=== PATIENT | female | born 1995 | race Caucasian/White ===

== ENCOUNTER 2023-06-18 18:02 | Inpatient (IN) | payer BC, SELFPAY ==
[2023-06-18 18:31] VITALS: BP 127/79; PULSE 79; RESP 16; TEMP 36.5
[2023-06-18 18:36] VITALS: BP 127/79; PULSE 79
--- NOTE | 2023-06-18 19:07 | W.PM.OBHPL1 ---
Date of service: 06/18/23 Time of Service: 19:08 Assessment and Plan Assessment and plan (1) : Status: Acute Assessment and plan: Nela is a 28yo at 40.1 with Rh+ RI GBS- HepC-. Here with early spontaneous labor. SVE in clinic this afternoon was 40/-2. Now /-2 after reporting q5min contractions with increasing intensity at home for the last 1.5 hours. Unfortunately, contraction did calm down once she arrived here, but she has made reasonable cervical change today. Admitted in labor, wishes to avoid interventions if necessary such as IV. Will consider nitrous. Anticipate routine labor care. Qualifiers: Weeks of gestation: 40 weeks Qualified Code(s): Z3A.40 - 40 weeks gestation of OB-HPI Labor/Delivery History of Present Illness Chief Complaint: Uterine Contractions. PAULA Calculator Estimated Delivery Date Method Current WG Current Estimate 06/17/23 LMP (Certain) 40w 1d History of Present Expected Delivery Route/Plan Assessment: History Reviewed & Current Narrative: Nela is a with uncomplicated . History of induction that was a fairly traumatic experience for her. Review of Systems All systems reviewed & are unremarkable except as noted in HPI and below PFSH All Active Problems (Updated 06/18/23 @ 19:19 by Dre Maravilla) (Acute) Social History Smoking risk assessment performed?: No Exam Physical Exam Vital signs: Temp Pulse Resp BP 36.5 C 79 16 127/79 06/18/23 18:31 06/18/23 18:36 06/18/23 18:31 06/18/23 18:36 Detailed Labor and Delivery Exam Dilation: 5 Effacement (%): 70 station: -2 Cervix position: mid Consistency: soft Griffiths Score: Cervical Points Exam 0 1 2 3 Dilation Closed 1-2cm 3-4 cm 5-6cm Effacement 0-30% 40-50% 60-70% 80% Consistency Firm Medium Soft Station -3 -2 -1,0 +1,+2 Position Posterior Mid Anterior GRIFFITHS Score(Cervical Ripeness Score): 9 Amniotic Membrane Status: Intact Monitor Mode: External Contraction Intensity: Mild Fetus A Heart Rate Baseline: 130 Monitor Accelerations: 15 X 15 Monitor Decelerations: None Variability: Moderate (6-25 BPM) Presentation: Vertex Categories: Category I Assessment Note: Category 1, reactive strip. HEENT Exam HEENT Exam: Normal Respiratory Exam Respiratory Exam: Normal Cardiovascular Exam Cardiovascular Exam: Normal Exam Exam: Normal Back/Spine/Pelvis Exam Back Exam: Normal Pelvis Adequate: Yes Neurological Exam Neurological Exam: Normal Psychiatric Exam Psychiatric Exam: Normal Results Results Group Beta Strep: Negative Blood Type: O+ Rubella Status: Immune Varicella Immunity: Not Tested Risk Assessment Risk for Shoulder Dystocia Increased Risk?: No Risk for Pre-Eclampsia Daily Dose ASA Indicated: No Risk for Post- Hemorrhage At Risk?: No Counseled re: Active Management: Yes Risks Reviewed Risks Reviewed Upon Admission: Yes
[2023-06-18 19:39] LABS: HCT 38.3 % (36.0-46.0); HGB 12.5 g/dL (11.2-15.7); MCHC 32.6 % (32.0-36.0); MCV 98 fL (80-95); MPV 10.3 fL (8.0-11.0); Platelet Count 242 10^3/uL (130-400); RBC 3.91 10^6/uL (3.93-5.22); RDW 13.2 % (11.7-14.6); RDW-SD 47.6 fL; WBC 12.48 10^3/uL (4.4-10.8)
[2023-06-18 21:55] VITALS: BP 124/68; PULSE 74; RESP 16; TEMP 36.8; O2SAT 98
[2023-06-18 22:14] VITALS: BP 124/68; PULSE 74; RESP 16; TEMP 36.8
[2023-06-18 23:55] VITALS: PULSE 84
[2023-06-19] VITALS (12 sets, daily range): BP systolic 105–162; BP diastolic 56–78; PULSE 63–97; RESP 12–18; TEMP 36.2–37
--- NOTE | 2023-06-19 00:48 | OBVDS_ITS ---
Date of service: 06/19/23 Time of Service: 00:48 OB Labor/ Delivery Information Baby A Delivery Delivery Method: Spontaneaous Presentation: Vertex Cephalic Position: Vertex Vertex Position: Left Occipital Anterior Breech Position: N/A Cord Description-Baby A: 3 Vessels Amniotic Fluid: Clear Delivery Outcome: Liveborn Transferred: Remains with Mother Providers Doctor: Dre Maravilla [employer] Teacher: Dre Maravilla Nurse: Neha Sung Labor/Delivery Information Number of Babies in Womb: 1 Steroids Given: None Reason Steroids Not Administered: N/A Group Beta Strep: Negative Antibiotics Administered: No Rubella Status: Immune Blood Type: O+ Varicella Immunity: Not Tested Born En Route: No Maternal Complications: None Shoulder Dystocia: No Stages of Labor Onset of Labor Date: 06/18/23 Onset of Labor Time: 14:00 Complete Dilatation Date: 06/18/23 Complete Dilatation Time: 23:57 Labor - Stage 1 Duration: 9 hours and 57 minutes ROM Baby A: 06/18/23 ROM Baby A: 23:57 Delivery Date-Baby A: 06/19/23 Infant Delivery Time-Baby A: 12:03 Labor Stage 2 Duration: 12 hours and 6 minutes Placenta Delivery Date-Baby A: 06/19/23 Placenta Delivery Time-Baby A: 12:09 Labor-Stage 3 Duration: 6 minutes Total Length of Labor-Baby A: 22 hours and 3 minutes Placenta Cultured: No Placenta Status: Delivered Baby A Infant Gender: Female Gestational Status: Term (39-41.6 wks) Score-1 Minute Interval(Baby A) Heart Rate-1 minute: 100 BPM or Greater Respiratory Effort- 1 minute: Slow Respiration/Weak Cry Muscle Tone-1 minute: Active Movement Reflex Response-1 minute: Prompt Response Color-1 minute: Bluish Hands or Feet Score-5 Minute Interval(Baby A) Heart Rate- 5 minute: 100 BPM or Greater Respiratory Effort-5 minute: Spontaneous/Strong Cry Muscle Tone-5 minute: Active Movement Reflex Response-5 minute: Prompt Response Color-5 minute: Bluish Hands or Feet Note: I was called to the bedside when her membranes ruptured. Cervical exam showed her to be complete. She was feeling the urge to push. FHT category 1. She pushed very effectively and quickly delivered a viable baby girl in STACY position. Baby was dried and stimulated, and placed on moms chest. There was increased bleeding which was found to be from a small laceration right periuret hral. Pressure was applied which stopped bleeding initially. 10u IM Pitocin was given as she did not have an IV in place. After pulsations stopped, cord was clamped and cut by dad. Placenta was delivered intact, 3 vessel cord. After placenta was delivered, area of bleeding was anesthetized with lidocaine. I then I placed 3-0 vicryl suture at the right periurethral area until homeostasis was achieved. There was a small first degree perineal laceration that did not require repair. Interventions Repair of Laceration Type: Periurethral, Laceration Extension: Second Degree. Sponge Count Correct: Yes, Sharp Count Correct: Yes. Laceration Repair Note: Right periurethral laceration with active bleeding, 3-0 vicryl was anchored and then run through the laceration until hemostasis was achieved.
[2023-06-19] MEDS: Ibuprofen 600 MG TAB PO ×4 (01:38→20:09)
[2023-06-19] MEDS: Acetaminophen 325 MG TAB 650 MG PO ×3 (06:10→17:15)
--- NOTE | 2023-06-19 16:45 | OBPPV_ITS ---
Date of service: 06/19/23 Time of Service: 16:45 Assessment and Plan Assessment and plan (1) : Status: Acute Assessment and plan: Nela is PP day 1, doing wonderfully. She is up and showered. Eating well. Voiding without problem, passing gas, no BM yet. Nursing is going well, no pain, good latch. Bleeding is slowing down. Fundis is firm, below umbilicus. Anticipate routine post care, DC home tomorrow. Qualifiers: Weeks of gestation: 40 weeks Qualified Code(s): Z3A.40 - 40 weeks gestation of Subjective Subjective Patient comments: No complaints baby status: Doing well [place] feeding status: Exclusively breast feeding Exam Physical Exam Vital signs: Temp Pulse Resp BP Pulse Ox 37.0 C 70 16 115/70 98 06/19/23 07:32 06/19/23 07:32 06/19/23 07:32 06/19/23 07:32 06/18/23 21:55 Vital Signs Reviewed: Yes Constitutional Constitutional: no acute distress Respiratory Exam Respiratory Exam: Normal Cardiovascular Exam Cardiovascular Exam: Normal Fundal Exam Fundus: Below Umbilicus and Firm Extremities Exam Extremity Exam: Normal Skin Exam Skin Exam: Normal Neurological Exam Neurological Exam: Normal Psychiatric Exam Psychiatric Exam: Normal Results Hemoglobin/Hematocrit: Hgb 12.5 g/dL (11.2-15.7) 06/18/23 19:24 Hct 38.3 % (36.0-46.0) 06/18/23 19:24 Abnormal Lab Findings: Abnormal Labs 06/18/23 19:24 WBC 12.48 H RBC 3.91 L MCV 98 H
[2023-06-20 08:15] VITALS: BP 108/73; PULSE 79; RESP 16; TEMP 36.4; O2SAT 97
[2023-06-20] MEDS: Ibuprofen 600 MG TAB PO (08:21)
[2023-06-20] MEDS: Hamamelis Leaf/Glycerin 100 EACH BOX PR (08:21)
--- NOTE | 2023-06-20 11:47 | W.PM.OBDISCH ---
Date of service: 06/20/23 Time of Service: 11:48 DS: Diagnosis Discharge Diagnosis (1) : Status: Acute Asessment and Plan: 28yo [id number] with RH+ RI GBS- sp at term. Uncomplicated labor and delivery. Right periurethral laceration was repaired. Doing well post , voiding, passing nadeen. No BM yet. Lochia normal, minimal pain. Fundus firm, below umbilicus, deviated to pts right. Nursing is going very well, no concerns. Normal exam. Will DC home today. Follow up with me or PCP in 6 weeks for post visit. Discussed when to call in the mean time. Discharge Plan Disposition Patient Disposition: Home Condition: Good Discharge Details Reason For Visit: Term labor Admit Date/Time: 06/18/23 18:02 Admit Provider: Dre Maravilla Attending Provider: Dre Maravilla Primary Care Provider: Unknown,Unknown Home Meds and New Rx's Prescriptions: No Action No Known Home Meds Discharge Instructions Stand Alone Forms: BC Instructions, BC Post Vaginal Deliver Activity:: Activity as Tolerated Equipment/Supplies:: No Equipment Needed Diet:: Normal Diet Discharge Orders Discharge Orders: Discharge Order (Routine); Ordered 06/20/23 Ordered By: Dre Maravilla OB:DS Summary Summary Vaginal Delivery Method: Spontaneaous Episiotomy Description: None Laceration Description: Periurethral Laceration Extension: Second Degree Contraception Discussed Contraception Discussed: Yes, Infant Gender-Baby A: Female weight: 3080 g Disposition of Baby A: Home Infant Gender-Baby B: Female Status at Discharge Functional status at discharge: independent ambulation Overall status at discharge: patient is back to baseline Mental Status: mental status grossly normal Speech and Movement: speech and movement normal Mood: congruent mood Affect: normal affect Time Spent with Patient providing and/or coordinating discharge services: Less than 30 minutes Quality:SDOH Health Related Social Needs: No Data to Display Exam Physical Exam Vital signs: Temp Pulse Resp BP Pulse Ox 36.4 C L 79 16 108/73 97 06/20/23 08:15 06/20/23 08:15 06/20/23 08:15 06/20/23 08:15 06/20/23 08:15 Vital Signs Reviewed: Yes Constitutional Constitutional: no acute distress Cardiovascular Exam Cardiovascular Exam: Normal Fundal Exam Fundus: Below Umbilicus and Firm Comment: slightly deviated to the right Extremities Exam Extremity Exam: Normal Skin Exam Skin Exam: Normal Neurological Exam Neurological Exam: Normal Psychiatric Exam Psychiatric Exam: Normal PFSH All Active Problems (Acute) Social History Smoking/Tobacco Use Status: Never Smoking risk assessment performed?: Yes Alcohol Intake: never Substance use type: does not use Housing: house Do you feel safe at home: Yes Do you feel safe in your relationship?: Yes History History 2 Para 1 Hx # Term Pregnancies Multiple births Hx # Pregnancies Ectopic pregnancies AB induced Hx Number of Living Children AB spontaneous DS: Data Vitals/I&O Vitals and I&O: Vital Signs Temperature 36.4 C L 06/20/23 08:15 Temperature Source Oral 06/20/23 08:15 Pulse 79 06/20/23 08:15 Pulse Rhythm Regular 06/20/23 08:00 Respiratory Rate 16 06/20/23 08:15 Respiratory Depth Normal 06/19/23 07:30 Blood Pressure 108/73 06/20/23 08:15 Blood Pressure Mean 84 06/20/23 08:15 Pulse Oximetry 97 06/20/23 08:15 Oxygen Delivery Method Room Air 06/18/23 21:55 Oxygen Flow Rate 0 06/18/23 21:55 Pain Level 4 06/20/23 08:21 Intake & Output 06/19/23 06/19/23 06/20/23 11:59 23:59 11:59 Output Total 1000 / 1000 Balance -1000 / -1000 Output: Urine 1000 / 1000 Other: Urine Color Yellow Pale
== END 2023-06-20 13:15 | disposition home or self-care (01) | DRG 807 ==
PROVIDERS: Admitting Provider Family Medicine; Visit Provider Family Medicine
DX: O71.82 Other specified trauma to perineum and vulva (principal); Z37.0 Single live birth; Z3A.40 40 weeks gestation of pregnancy
CPT/HCPCS: 00123; 36415; 85027; 86850; 86900; 86901; J2003

== ENCOUNTER 2024-04-14 22:21 | Emergency (ER) | payer BC, SELFPAY ==
--- NOTE | 2024-04-14 00:24 | DI.CT_ITS ---
Exam(s) CT NECK W EXAM: CT NECK W CLINICAL HISTORY: left side throat pain/swelling. TECHNIQUE: Imaging Protocol: Axial computed tomography images with coronal and sagittal reformatted images were created and reviewed. CONTRAST MATERIAL: Intravenous: Omnipaque 350 Contrast volume:100mL COMPARISON: No exams were available for comparison FINDINGS: Visualized intracranial structures: Within normal limits. Orbits and orbital soft tissues: Within normal limits. Visualized paranasal sinuses: There is minimal mucosal thickening in the right maxillary sinus. The remaining visualized paranasal sinuses and mastoid air cells are clear. Nasopharynx: Within normal limits. Oropharynx: There are enlarged left tonsils present. There is an area of decreased attenuation withi n the left tonsils measuring 1.1 x 0.4 cm suggesting a small peritonsillar abscess. (Series 4, image 37). There is also enlargement of the left aspect of the epiglottis. The enlarged tissue is hypode nse in causes obstruction of the adjacent vallecular and piriform sinus. Larynx: Within normal limits. Retropharyngeal space: Within normal limits. Parotids/submandibular: Within normal limits. Thyroid gland: There is a 1.2 x 1.7 cm heterogeneously enhancing left thyroid mass. Nonemergent thy roid ultrasound is recommended for further evaluation. Lymphadenopathy: There are mildly enlarged reactive lymph nodes in the left neck. Trachea: Within normal limits. Lung apices: Within normal limits. Bones: Within normal limits for the patient's age. Carotids/Jugular: Within normal limits. Soft tissues: There is infiltration of the soft tissues in the submandibular region and left neck c onsistent with cellulitis. IMPRESSION: 1. Enlarged left tonsils suspicious for tonsillitis. There is an area of decreased attenuation centra lly which may represent a small peritonsillar abscess. 2. Enlarged lymph nodes in the neck which may be reactive. 3. Heterogeneous large mint of the left aspect of the epiglottis extending into the adjacent soft tis sues. It does cause obstruction of the vallecular and piriform sinus on this side. The possibility of a neoplasm should be considered. 4. 1.2 x 1.7 cm left thyroid nodule. Nonemergent thyroid ultrasound is recommended for further evalua tion. RADIATION DOSE DELIVERED: 244.32mGy.cm Total DLP 244.32mGy.cm Total DLP DATA REPOSITORY: All CT scans at this facility are submitted to the National Radiology Data Registry (NRDR) Dose Index Registry (DIR) with the [employer] (A[employer]). RADIATION OPTIMIZATION: All CT scans at this facility use at least one of these dose optimization te chniques: automated exposure control; mA and/or kV adjustment per patient size (includes targeted exa ms where dose is matched to clinical indication); or iterative reconstruction.
[2024-04-14 22:25] VITALS: BP 114/73; PULSE 109; RESP 16; TEMP 37.6; O2SAT 97
--- NOTE | 2024-04-14 22:59 | ED.GENADUL_ITS ---
Discharge Plan Disposition Patient Disposition: Home Condition: Stable Discharge Details Clinical Impression: Pharyngitis, Pharyngeal mass, Cervical lymphadenopathy Primary Care Provider: Unknown,Unknown ED Provider: Urban Jamison and Wagner Rx's Prescriptions: New clindamycin HCl 150 mg capsule 450 mg PO TID Qty: 90 0RF Discharge Instructions Additional Instructions: You were seen in the ED for left-sided throat and neck pain. This is all likely related to an acute infection for which we have started you on clindamycin. You did receive steroids here which should help improve with the swelling over the next day or 2. As we discussed you should pump and dump at least for the next 1 to 2 days. The antibiotic that you are being placed on is safe while breast- feeding. I would like you to follow-up with your primary care or Sunday for recheck. You should call our ENT office to set up for follow-up with them next week given radiology's concern for possible mass. Patient to drink plenty of fluids to stay hydrated. It is not so important to eat until you are feeling better. Cepacol lozenges should help with the throat pain. Alternating acetaminophen with ibuprofen every 4 hours will help. Return to the ED for any difficulty breathing, inability to swallow, severe worsening pain, severe worsening headache or neurologic change, other concerns. Referrals: [facility] [Provider Group] - 1 week HPI General Mode of arrival: ambulatory . Date/Time Provider Initiated Documentation: 04/14/24 22:36 . Limitations to Documentation: no limitations . Information obtained by: patient and RN notes reviewed . HPI Narrative: Patient presents to ED with complaint of sore throat, ear pain, fever, inability to swallow. Symptoms began 4 to 5 days ago shortly after her began having similar symptoms. Hers has gotten significantly worse compared to him. She has not really been able to eat or drink for the last 24 hours. Most of the pain is on the left side of her throat, neck, ear. She denies any difficulty breathing. Denies any vomiting or diarrhea. Denies any chest pain. Was seen by primary care this afternoon and reports negative rapid strep and negative COVID. Was referred to ED because of concern with a neck swelling and pain that was present. Related Data Home Medications ?Medication ?Instructions ?Recorded ?Confirmed clindamycin HCl 150 mg capsule 450 mg (3 x 150 mg) PO TID #90 caps 04/15/24 Previous Rx's ?Medication ?Instructions ?Recorded clindamycin HCl 150 mg capsule 450 mg (3 x 150 mg) PO TID #90 caps 04/15/24 Allergies Allergy/AdvReac Type Severity Reaction Status Date / Time No Known Allergies Allergy Unverified 04/14/24 22:29 General Stated Complaint: Sorethroat MAGNO: 4 Review of Systems Narrative: Per HPI Exam Narrative Exam Narrative: Const: WDWN female in NAD. VS per triage. HEENT: NC/AT. Normal facial exam. TMs are clear bilaterally. Oropharynx with erythema, posterior tonsillar pillar swelling on the left. Neck: Supple. Trachea midline. Significant anterior adenopathy with large tender node on the left. Lungs: Normal respiratory effort. Lungs are clear. Cor: RRR without murmur. Good radial pulses. GI: Soft/ND/NT. Neuro: A+O x 3. Normal speech, mentation, gait. Cranial nerves II - XII grossly intact. No gross motor or sensory deficit. Ext: No C/C/E. Course Vital Signs Vital signs: Vital Signs Temperature 99.7 F H 04/14/24 22:25 Pulse 109 H 04/14/24 22:25 Respiratory Rate 16 04/14/24 22:25 Blood Pressure 114/73 04/14/24 22:25 Pulse Oximetry 97 04/14/24 22:25 Temperature 99.7 F H 04/14/24 22:25 Temperature Source Temporal Artery Scan 04/14/24 22:25 Pulse 109 H 04/14/24 22:25 Respiratory Rate 16 04/14/24 22:25 Blood Pressure 114/73 04/14/24 22:25 Pulse Oximetry 97 04/14/24 22:25 Oxygen Delivery Method Room Air 04/14/24 22:25 Oxygen Flow Rate 0 04/14/24 22:25 Pain Level 8 04/14/24 22:25 Medical Decision Making Patient presenting to ED with worsening throat pain and inability to swallow. She is mildly tachycardic. She looks uncomfortable but not toxic. Respirations are normal. Significant adenopathy anteriorly left greater than right. Some left peritonsilar edema/erythema, consider abscess or phlegmon. Reportedly negative strep and COVID at PCP but no results available. Will repeat rapid strep and POC COVID/flu. Will place IV, give fluids given inability to swallow and tachycardia. Will also dose with ketorolac and dexamethasone. Patient notes that she is breast-feeding. Have discussed with the patient and she will pump and dump over the next few days. Will obtain CT of the neck to evaluate for abscess/phlegmon. 00:30 - Patient's rapid strep as well as POC COVID and flu are negative. Laboratory studies with slightly elevated white count of 12.5. Chemistries and liver function unremarkable. CT neck pending. 01:00 - CT neck preliminary read as below. IMPRESSION: 1. Large degree of infiltrative soft tissue involving the left palatine tonsil extending in the left parapharyngeal space, along the left lateral pharynx/hypopharynx, and along the base of the tongue. 1.7 cm polypoid extension of the mass within the left pyriform sinus. 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 The additional presence severe fat stranding in the left submandibular space indicates that there may be a superimposed infectious/inflammatory process. Recommend ENT surgical consultation. 2. Pathologically enlarged left cervical chain lymph nodes. Thank you for allowing us to participate in the care of your patient. Dictated and Authenticated by: Maco Saldaña MD 04/15/2024 12:52 AM Eastern Time ([place] & [place]) Given the patient's acute onset of symptoms with associated fever and leukocytosis suspect this is all infectious in nature. Will clearly need very close ENT follow-up and I have discussed the same with the patient and . Will begin on clindamycin which she may take during breast-feeding. Encourage fluid intake to maintain hydration. Symptomatic management with alternating doses of ibuprofen and acetaminophen. Short-term follow-up with PCP later this week and referral to ENT as well. Return precautions provided. Lab Data Lab results reviewed: Yes I reviewed the patient's lab results. Lab results narrative: See [facility] All Active Problems (Updated 04/15/24 @ 01:23 by Urban Jamison MD) Cervical lymphadenopathy (Acute) Pharyngeal mass (Acute) Pharyngitis (Acute) Medical History No significant past medical history Social History Smoking/Tobacco Use Status: Never Smoking risk assessment performed?: Yes Alcohol Intake: never Drug use: Never Substance use type: does not use Housing: house Do you feel safe at home: Yes Do you feel safe in your relationship?: Yes History History 2 Para 1 Hx # Term Pregnancies Multiple births Hx # Pregnancies Ectopic pregnancies AB induced Hx Number of Living Children AB spontaneous Past Pregnancies Del. Date GA/Weeks # Preg Succ Route Wgt Sex Labor Lgth Anesth esia Location [facility] 06/19/23 Yes vaginal Female 22hr 3 min S.L Gisela
[2024-04-14] MEDS: Normal Saline 1,000 ML 1000 ML IV (23:28)
[2024-04-14] MEDS: Dexamethasone 10 MG/ML VIAL IVP (23:29)
[2024-04-14] MEDS: Ketorolac 30 MG/ML VIAL IVP (23:29)
[2024-04-14 23:30] VITALS: BP 116/72; PULSE 100; RESP 16; O2SAT 97
[2024-04-14 23:46] LABS: HCT 36.8 % (36.0-46.0); HGB 11.9 g/dL (11.2-15.7); MCH 30.4 pg (27.0-33.0); MCHC 32.3 % (32.0-36.0); MCV 94 fL (80-95); MPV 9.6 fL (8.0-11.0); Platelet Count 243 10^3/uL (130-400); RBC 3.92 10^6/uL (3.93-5.22); RDW-SD 41.3 fL; WBC 12.53 10^3/uL (4.4-10.8)
[2024-04-15] LABS: HCG Qual (Serum) Negative
[2024-04-15 00:06] LABS: ALT 18 U/L (14-59); AST 14 U/L (15-37); Albumin 3.8 g/dL (3.4-5.0); Alkaline Phosphatase 66 U/L (46-116); Anion Gap 11.4 mmol/L (3-11); BUN 11 mg/dL (7-18); Bilirubin, Total 0.96 mg/dL (0.2-1.0); CO2 25.6 mmol/L (21.0-32.0); CREATININE 0.9 mg/dL (0.55-1.02); Chloride 100 mmol/L (98-107); Estimated GFR 88.75 (mL/min/1.73m2); Glucose 79 mg/dL (74-106); Potassium 3.9 mmol/L (3.5-5.1); Sodium 137 mmol/L (136-145); Total Protein 8.1 g/dL (6.4-8.2)
[2024-04-15] MEDS: Normal Saline - Diluent 50 ML VIAL IJ (00:09)
[2024-04-15] MEDS: Omnipaque 350 MG/ML 100 ML BTL IJ (00:22)
--- NOTE | 2024-04-15 00:52 | DI.VRAD_ITS ---
PROCEDURE INFORMATION: Exam: CT Neck With Contrast Exam date and time: 04/15/2024 12:17 AM Age: 29 years old Clinical indication: Patient HX: Left side throat pain/swelling TECHNIQUE: Imaging protocol: Computed tomography of the neck with contrast. Radiation optimization: All CT scans at this facility use at least one of these dose optimization techniques: automated exposure control; mA and/or kV adjustment per patient size (includes targeted exams where dose is matched to clinical indication); or iterative reconstruction. Contrast material: OMNI 350; Contrast volume: 100 ml; Contrast route: INTRAVENOUS (IV); COMPARISON: No relevant prior studies available. FINDINGS: Salivary glands: Severe fat stranding within the left submandibular space asymmetric mild enlargement of the left submandibular gland. Pharynx/larynx: Large degree of infiltrative soft tissue involving the left palatine tonsil extending in the left parapharyngeal space and along the left lateral pharynx/hypopharynx. Soft tissue also appears to extend along the base of the tongue. There is enlarged bilateral lingual tonsils as well as a 1.7 cm polypoid extension of the mass within the left pyriform sinus. Prevertebral and retropharyngeal spaces: Unremarkable. Larynx: Unremarkable. Normal epiglottis. Thyroid: Unremarkable. No enlarged or calcified nodules. Trachea: Unremarkable. Lungs: Unremarkable as visualized. Lymph nodes: Pathologically enlarged left cervical chain lymph nodes. Bones/joints: No acute osseus lesions or fractures. Soft tissues: See above. IMPRESSION: 1. Large degree of infiltrative soft tissue involving the left palatine tonsil extending in the left parapharyngeal space, along the left lateral pharynx/hypopharynx, and along the base of the tongue. 1.7 cm polypoid extension of the mass within the left pyriform sinus. 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 The additional presence severe fat stranding in the left submandibular space indicates that there may be a superimposed infectious/inflammatory process. Recommend ENT surgical consultation. 2. Pathologically enlarged left cervical chain lymph nodes. Dictated and Authenticated by: Maco Saldaña MD. Orderin Shaheen Duggan MD
[2024-04-15 01:06] VITALS: BP 94/56; PULSE 86; RESP 16; O2SAT 95
[2024-04-15] MEDS: CLINDAMYCIN 600 MG/50 ML BAG 100 MG IVPB (01:15)
[2024-04-15 01:51] VITALS: BP 100/60; PULSE 82; RESP 16; O2SAT 98
== END 2024-04-15 01:51 | disposition home or self-care (01) ==
PROVIDERS: Emergency Provider Emergency Medicine
DX: J02.9 Acute pharyngitis, unspecified (principal); R50.9 Fever, unspecified; E04.1 Nontoxic single thyroid nodule; J39.2 Other diseases of pharynx
CPT/HCPCS: 70491; 80053; 85027; 87426; 87880; 96361; 96365; 96375; 99285; 84703; 99284; J0737; J1100; J1885; J3490

== ENCOUNTER 2024-06-10 00:28 | Outpatient (CLI) | payer BC, SELFPAY ==
--- NOTE | 2024-06-10 07:00 | DI.US_ITS ---
Exam(s) US NEEDLE LOCAL OTHER WO RAD EXAM: US NEEDLE LOCAL OTHER WO RAD CLINICAL HISTORY: left-side thyroid nodule,ULTRASOUND GUIDED BX,E04.1. COMPARISON: No exams were available for comparison TECHNIQUE: Ultrasound was provided for Dr. Barnett for guidance with performing left thyroid biopsy. FINDINGS: Please see procedure note for details. DATA REPOSITORY:
--- NOTE | 2024-06-10 11:30 | PAPNONF_PTH ---
PATIENT: Oralia Su LOC: [facility] U#:[id number] AGE/SX: 29/F ROOM: RE06/10/[address]: Ozzie Barnett MD : [id number] BED: DIS: 06/10/2024 SPEC #: [id number] RECD: 06/10/24 12:52 STATUS: LANCE REQ #: [id number] ARNOLD: 06/10/24 11:[address]: Ozize Barnett DEPT: [facility], [facility] Cytology RECD BY: Bhavya Tee ENTERED: 06/10/24 12:53 SP TYPE: MARC NIEVES DR: THERESA ROBIN Tissues: 1 - BODY FLUID CYTO-FINE NEEDLE ASPIRATE-[facility] Procedures: BODY FLUID CYTO-FINE NEEDLE ASPIRATE-[facility] Comments: [id number] (PATH FNA CONSULT) (REFRIGERATED)
--- NOTE | 2024-06-10 13:13 | W.PROCNOTE ---
Date of service: 06/10/24 Time of Service: 13:13 Procedure Note Date of procedure: 06/10/24 Procedure: Ultrasound-guided FNA, left thyroid nodule, pathology present Surgeon/Proceduralist/Physician: Ozzie Barnett Procedure Diagnosis: Left-sided thyroid nodule meeting criteria for biopsy Procedure Indications: Left-sided thyroid nodule meeting criteria for biopsy. Procedure Description: I reviewed the findings with the patient. We discussed options. They wish to proceed with ultrasound-guided FNA. Risks and benefits were discussed at length. The patient was then positioned in a supine position with her neck slightly extended. Ultrasound was used to localize the thyroid on the left after the patient had been prepped and draped in appropriate fashion. 1% lidocaine with 1/100,000 epinephrine was injected into the skin and subcutaneous tissues overlying the nodule and then a 25-gauge needle passed into the thyroid and removed [id number] to collect specimen. This was then handed to pathology who verified adequate cellularity. 2 additional passes were made, again under ultrasound guidance, for potential Afirma testing. She tolerated this procedure well. Sterile dressing was applied after ensuring adequate hemostasis. The patient was then allowed to sit, stand, and ambulate. Her vital signs remained stable. The specimen was handled by pathology. She will remove the bandage within the next few hours and not replace it. She will avoid anything strenuous today and use Tylenol for any discomfort. She will call if she does not hear from me within 1 week with regard to pathology results. She had no further questions. She is comfortable with the plan.
== END 2024-06-10 00:48 ==
LOC: DI 00:29
PROVIDERS: PCP Nurse Practitioner Family; Visit Provider Otolaryngology
DX: D44.0 Neoplasm of uncertain behavior of thyroid gland (principal)
CPT/HCPCS: 10005; 76942; 88104